=== PATIENT | female | born 1960 | race Caucasian/White ===

== ENCOUNTER 2019-10-07 22:53 | Emergency (ER) | payer OTHER ==
[~2019-10-07] VITALS: Ht 167.6 cm; Wt 82.0 kg
[2019-10-08] MEDS ORDERED: MECLIZINE 25MG TABLET PO ONE (01:30)
[2019-10-08 01:47] LABS: CHLORIDE 107 mEq/L (98-107)
[2019-10-08 01:53] LABS: HEMOGLOBIN 13.7 g/dL (12.0-16.0); MEAN CORPUSCULAR HEMOGLOBIN 31.3 pg (28.0-32.0); MEAN CORPUSCULAR VOLUME 89.6 fL (81.0-99.0); PLATELET 251 x1000/uL (130-400); RED BLOOD CELL COUNT 4.36 mill/uL (4.2-5.4); RED CELL DISTRIBUTION WIDTH 12.5 % (11.6-14.6)
[2019-10-08] MEDS ORDERED: IBUPROFEN 600MG TABLET PO ONE (02:30)
[2019-10-08 03:38] LABS: CLARITY URINE CLEAR (CLEAR); COLOR URINE YELLOW (YELLOW); KETONES URINE NEGATIVE (NEGATIVE); LEUKOCYTE ESTERASE URINE NEGATIVE (NEGATIVE); NITRITE URINE NEGATIVE (NEGATIVE); OCCULT BLOOD URINE NEGATIVE (NEGATIVE); PROTEIN URINE NEGATIVE (NEGATIVE); SPECIFIC GRAVITY URINE 1.007 (1.005-1.030); UROBILINOGEN URINE 0.2 E.U./dL (0.2-1.0)
[2019-10-08 03:43] VITALS: BP 135/76
== END 2019-10-08 04:24 | disposition home or self-care (01) ==
LOC: ER 22:53
DX: R42 Dizziness and giddiness (principal); H92.09 Otalgia, unspecified ear; Z98.890 Other specified postprocedural states; Z91.02 Food additives allergy status
CPT/HCPCS: 36415; 70450; 80053; 81003; 83690; 85027; 93005; 99285; J8597

== ENCOUNTER 2021-02-23 20:56 | Inpatient (IN) | payer OTHER ==
[~2021-02-23] VITALS: Ht 170.2 cm; Wt 89.9 kg
[~2021-02-23 20:56] MED LIST: ACET-2708 MT; IBUP-2030 PO; TUSSL MT
[2021-02-23 21:00] VITALS: BP 108/51
[2021-02-23] MEDS ORDERED: ONDANSETRON HCL 4MG TABLET PO PRN (22:30)
[2021-02-23] MEDS ORDERED: ALBUTEROL 6.7GM HFA INHALER ORI PRN (22:30)
[2021-02-23] MEDS ORDERED: NALOXONE HCL 0.4 MG/ML 1ML VIAL IV PRN (22:30)
[2021-02-23] MEDS ORDERED: MECLIZINE 25MG TABLET PO PRN (22:30)
[2021-02-23] MEDS: HYDROCODONE/ACETAMINOPHEN 5/325MG TABLET PO PRN (22:45)
[2021-02-23] MEDS ORDERED: NALOXONE HCL 0.4MG/ML VIAL IV PRN (23:00)
[2021-02-23 23:11] VITALS: BP 108/51
[2021-02-24] MEDS: HYDROCODONE/ACETAMINOPHEN 5/325MG TABLET PO PRN ×3 (06:34→20:45)
[2021-02-24 06:52] LABS: BASOPHILS % 0.5 % (0.0-2.0); EOSINOPHILS % 2.7 % (0.0-5.0); HEMATOCRIT. 35.4 % (36.0-48.0); HEMOGLOBIN. 12.2 g/dL (12.0-16.0); LYMPHOCYTES % 14.9 % (20.0-50.0); MEAN CORPUSCULAR HEMOGLOBIN 29.8 pg (28.0-32.0); MEAN CORPUSCULAR VOLUME 86.5 fL (81.0-99.0); MEAN PLATELET VOLUME 8.3 fl (7.4-10.4); MONOCYTES % 6.5 % (2.0-8.0); NEUTROPHILS % 75.4 % (40.0-76.0); PLATELET 339 x1000/uL (130-400); RED BLOOD CELL COUNT 4.09 mill/uL (4.2-5.4); RED CELL DISTRIBUTION WIDTH 12.4 % (11.6-14.6)
[2021-02-24 06:59] LABS: CHLORIDE 104 mEq/L (98-107)
[2021-02-24] MEDS: GUAIFENESIN-DM 200MG-20MG/10ML UDC PO PRN ×2 (07:32→15:35)
[2021-02-24 07:49] VITALS: BP 103/65
[2021-02-24] MEDS ORDERED: ENOXAPARIN 30MG/0.3ML SYR SUBCUT SCH (09:00)
[2021-02-24] MEDS: ASCORBIC ACID 500 MG TABLET PO SCH ×2 (09:32→20:39)
[2021-02-24] MEDS: ASPIRIN 81MG TABLET PO SCH (09:33)
[2021-02-24] MEDS: ZINC SULFATE 220 MG ( 50 ) CAPSULE PO SCH (09:33)
[2021-02-24] MEDS: CHOLECALCIFEROL (D3) 1000 UNIT TABLET PO SCH (09:33)
[2021-02-24] MEDS: DEXAMETHASONE 4MG/ML 1ML VIAL IV SCH (09:34)
[2021-02-24] MEDS: FAMOTIDINE 20MG TABLET PO SCH ×2 (09:34→20:39)
[2021-02-24] MEDS ORDERED: IPRATROPIUM/ALBUTEROL 0.5-3(2.5)MG/3ML NEB HHN PRN (12:30)
[2021-02-24 15:23] LABS: CLARITY URINE CLEAR (CLEAR); COLOR URINE YELLOW (YELLOW); KETONES URINE NEGATIVE (NEGATIVE); LEUKOCYTE ESTERASE URINE NEGATIVE (NEGATIVE); NITRITE URINE NEGATIVE (NEGATIVE); OCCULT BLOOD URINE NEGATIVE (NEGATIVE); PROTEIN URINE NEGATIVE (NEGATIVE); SPECIFIC GRAVITY URINE 1.012 (1.005-1.030); UROBILINOGEN URINE 0.2 E.U./dL (0.2-1.0)
[2021-02-24] MEDS: BENZONATATE 100MG CAPSULE PO PRN (15:35)
[2021-02-24 20:00] VITALS: BP 117/72
[2021-02-24] MEDS: ENOXAPARIN 100MG/ML SYR SUBCUT SCH ×3 (20:39→20:49)
[2021-02-24] MEDS: ACETAMINOPHEN 325MG TABLET PO PRN (23:52)
[2021-02-25] MEDS: HYDROCODONE/ACETAMINOPHEN 5/325MG TABLET PO PRN ×2 (06:53→20:38)
[2021-02-25 08:00] VITALS: BP 112/62
[2021-02-25] MEDS: ASCORBIC ACID 500 MG TABLET PO SCH ×2 (08:54→20:37)
[2021-02-25] MEDS: CHOLECALCIFEROL (D3) 1000 UNIT TABLET PO SCH (08:54)
[2021-02-25] MEDS: ZINC SULFATE 220 MG ( 50 ) CAPSULE PO SCH (08:55)
[2021-02-25] MEDS: ASPIRIN 81MG TABLET PO SCH (08:55)
[2021-02-25] MEDS: FAMOTIDINE 20MG TABLET PO SCH ×2 (08:55→20:38)
[2021-02-25] MEDS: DEXAMETHASONE 4MG/ML 1ML VIAL IV SCH (08:56)
[2021-02-25] MEDS: ENOXAPARIN 100MG/ML SYR SUBCUT SCH (08:57)
[2021-02-25 09:23] LABS: BASOPHILS % 0.2 % (0.0-2.0); EOSINOPHILS % 0.6 % (0.0-5.0); HEMATOCRIT. 34.2 % (36.0-48.0); MEAN CORPUSCULAR HEMOGLOBIN 30.3 pg (28.0-32.0); MEAN PLATELET VOLUME 8.1 fl (7.4-10.4); MONOCYTES % 5.1 % (2.0-8.0); NEUTROPHILS % 83.1 % (40.0-76.0); PLATELET 434 x1000/uL (130-400); RED BLOOD CELL COUNT 3.97 mill/uL (4.2-5.4); RED CELL DISTRIBUTION WIDTH 12.7 % (11.6-14.6)
[2021-02-25 09:33] LABS: INR 1.1; PROTHROMBIN TIME 11.3 sec (9.6-11.0)
[2021-02-25 10:01] LABS: CHLORIDE 104 mEq/L (98-107)
[2021-02-25 10:09] LABS: LDL CHOLESTEROL 87 mg/dL (5-100)
[2021-02-25 10:10] LABS: HDL CHOLESTEROL 32 mg/dL (40-59); TOTAL IRON BINDING CAPACITY 245 ug/dL (250-450)
[2021-02-25 10:20] LABS: FOLIC ACID (FOLATE) SERUM 17.1 ng/mL (>5.38)
[2021-02-25 11:13] LABS: HEPATITIS B SURFACE ANTIGEN NEGATIVE
[2021-02-25 11:43] LABS: HEPATITIS A AB IGM NEGATIVE (NEGATIVE)
[2021-02-25] MEDS ORDERED: DEXAMETHASONE 10 MG/ML VIAL IV SCH (14:34)
[2021-02-25] MEDS ORDERED: ASCO-339 PO (17:43)
[2021-02-25] MEDS ORDERED: IBUP-2029 PO (17:43)
[2021-02-25] MEDS ORDERED: MULT-1146 PO (17:43)
[2021-02-25] MEDS: APIXABAN 5 MG TABLET PO SCH (18:52)
[2021-02-25 20:00] VITALS: BP 107/62
[2021-02-26] MEDS: GUAIFENESIN-DM 200MG-20MG/10ML UDC PO PRN ×3 (07:04→23:38)
[2021-02-26] MEDS: HYDROCODONE/ACETAMINOPHEN 5/325MG TABLET PO PRN ×3 (07:05→23:38)
[2021-02-26 07:51] VITALS: BP 110/71
[2021-02-26] MEDS: FAMOTIDINE 20MG TABLET PO SCH ×2 (09:21→22:13)
[2021-02-26] MEDS: ZINC SULFATE 220 MG ( 50 ) CAPSULE PO SCH (09:22)
[2021-02-26] MEDS: APIXABAN 5 MG TABLET PO SCH ×2 (09:22→17:25)
[2021-02-26] MEDS: DEXAMETHASONE 10 MG/ML VIAL IV SCH (09:23)
[2021-02-26] MEDS: CHOLECALCIFEROL (D3) 1000 UNIT TABLET PO SCH (09:23)
[2021-02-26] MEDS: ASPIRIN 81MG TABLET PO SCH (09:23)
[2021-02-26] MEDS: ASCORBIC ACID 500 MG TABLET PO SCH ×2 (13:17→22:13)
[2021-02-26] MEDS: BENZONATATE 100MG CAPSULE PO PRN (18:09)
[2021-02-26 20:00] VITALS: BP 117/71
[2021-02-27 07:26] LABS: CHLORIDE 105 mEq/L (98-107)
[2021-02-27 07:42] LABS: BASOPHILS % 0.3 % (0.0-2.0); EOSINOPHILS % 0.6 % (0.0-5.0); HEMATOCRIT. 33.1 % (36.0-48.0); HEMOGLOBIN. 11.2 g/dL (12.0-16.0); LYMPHOCYTES % 15.1 % (20.0-50.0); MEAN CORPUSCULAR HEMOGLOBIN 29.5 pg (28.0-32.0); MEAN CORPUSCULAR VOLUME 87.2 fL (81.0-99.0); MEAN PLATELET VOLUME 7.7 fl (7.4-10.4); MONOCYTES % 6.5 % (2.0-8.0); NEUTROPHILS % 77.5 % (40.0-76.0); PLATELET 464 x1000/uL (130-400); RED CELL DISTRIBUTION WIDTH 12.3 % (11.6-14.6)
[2021-02-27 08:19] VITALS: BP 128/70
[2021-02-27] MEDS: ZINC SULFATE 220 MG ( 50 ) CAPSULE PO SCH (08:46)
[2021-02-27] MEDS: FAMOTIDINE 20MG TABLET PO SCH ×2 (08:46→22:03)
[2021-02-27] MEDS: DEXAMETHASONE 10 MG/ML VIAL IV SCH (08:47)
[2021-02-27] MEDS: ASCORBIC ACID 500 MG TABLET PO SCH ×2 (08:47→22:03)
[2021-02-27] MEDS: CHOLECALCIFEROL (D3) 1000 UNIT TABLET PO SCH (08:47)
[2021-02-27] MEDS: ASPIRIN 81MG TABLET PO SCH (08:48)
[2021-02-27] MEDS: HYDROCODONE/ACETAMINOPHEN 5/325MG TABLET PO PRN (08:58)
[2021-02-27] MEDS: BENZONATATE 100MG CAPSULE PO PRN ×2 (11:41→20:18)
[2021-02-27] MEDS: APIXABAN 5 MG TABLET PO SCH ×2 (12:01→17:12)
[2021-02-27] MEDS: GUAIFENESIN-DM 200MG-20MG/10ML UDC PO PRN ×2 (16:27→23:05)
[2021-02-27 20:00] VITALS: BP 111/69
[2021-02-28 08:30] VITALS: BP 105/59
[2021-02-28] MEDS: GUAIFENESIN-DM 200MG-20MG/10ML UDC PO PRN ×4 (09:02→23:27)
[2021-02-28] MEDS: BENZONATATE 100MG CAPSULE PO PRN ×2 (09:02→17:57)
[2021-02-28] MEDS: APIXABAN 5 MG TABLET PO SCH ×2 (09:02→17:57)
[2021-02-28] MEDS: ASPIRIN 81MG TABLET PO SCH (09:03)
[2021-02-28] MEDS: FAMOTIDINE 20MG TABLET PO SCH ×2 (09:03→21:16)
[2021-02-28] MEDS: CHOLECALCIFEROL (D3) 1000 UNIT TABLET PO SCH (09:03)
[2021-02-28] MEDS: ZINC SULFATE 220 MG ( 50 ) CAPSULE PO SCH (09:03)
[2021-02-28 14:07] LABS: 25-HYDROXY VITAMIN D3 36 ng/mL (.)
[2021-02-28 20:00] VITALS: BP 105/65
[2021-02-28] MEDS: ACETAMINOPHEN 325MG TABLET PO PRN (21:16)
[2021-03-01] MEDS: BENZONATATE 100MG CAPSULE PO PRN ×2 (06:56→16:42)
[2021-03-01 08:00] VITALS: BP 110/70
[2021-03-01] MEDS: ZINC SULFATE 220 MG ( 50 ) CAPSULE PO SCH (08:42)
[2021-03-01] MEDS: CHOLECALCIFEROL (D3) 1000 UNIT TABLET PO SCH (08:42)
[2021-03-01] MEDS: FAMOTIDINE 20MG TABLET PO SCH ×2 (08:42→20:56)
[2021-03-01] MEDS: GUAIFENESIN-DM 200MG-20MG/10ML UDC PO PRN ×3 (08:43→20:56)
[2021-03-01] MEDS: ASPIRIN 81MG TABLET PO SCH (08:43)
[2021-03-01] MEDS: APIXABAN 5 MG TABLET PO SCH ×2 (08:43→16:31)
[2021-03-01] MEDS ORDERED: ERGOCALCIFEROL 50000UNITS CAPSULE PO SCH (15:15)
[2021-03-01 16:28] LABS: BASOPHILS % 0.5 % (0.0-2.0); EOSINOPHILS % 0.8 % (0.0-5.0); HEMATOCRIT. 34.6 % (36.0-48.0); LYMPHOCYTES % 14.7 % (20.0-50.0); MEAN CORPUSCULAR HEMOGLOBIN 30.3 pg (28.0-32.0); MEAN PLATELET VOLUME 7.5 fl (7.4-10.4); MONOCYTES % 7.1 % (2.0-8.0); NEUTROPHILS % 76.9 % (40.0-76.0); PLATELET 473 x1000/uL (130-400); RED BLOOD CELL COUNT 3.97 mill/uL (4.2-5.4); RED CELL DISTRIBUTION WIDTH 12.4 % (11.6-14.6)
[2021-03-01 16:41] LABS: CHLORIDE 106 mEq/L (98-107)
[2021-03-01 20:00] VITALS: BP 110/68
[2021-03-01] MEDS: ACETAMINOPHEN 325MG TABLET PO PRN (20:56)
[2021-03-02 07:46] VITALS: BP 106/70
[2021-03-02] MEDS: ZINC SULFATE 220 MG ( 50 ) CAPSULE PO SCH (08:14)
[2021-03-02] MEDS: CHOLECALCIFEROL (D3) 1000 UNIT TABLET PO SCH (08:15)
[2021-03-02] MEDS: FAMOTIDINE 20MG TABLET PO SCH (08:15)
[2021-03-02] MEDS: ASPIRIN 81MG TABLET PO SCH (08:15)
[2021-03-02] MEDS: APIXABAN 5 MG TABLET PO SCH (08:15)
[2021-03-02] MEDS: GUAIFENESIN-DM 200MG-20MG/10ML UDC PO PRN ×2 (08:15→13:44)
[2021-03-02] MEDS ORDERED: APIX5TAB PO (09:23)
[2021-03-02] MEDS ORDERED: ALBU18HF2 IH (09:39)
[2021-03-02] MEDS ORDERED: HEXY1LOZ4 MM (09:39)
[2021-03-02] MEDS ORDERED: FLUT1DIS3 INH (09:39)
[2021-03-02 11:43] VITALS: BP 106/70
[2021-03-04] MEDS ORDERED: APIXABAN 5 MG TABLET PO SCH (17:00)
== END 2021-03-02 14:50 | disposition home health service (06) | DRG 861 ==
PROVIDERS: ADMIT Physical Medicine & Rehabilitation Spinal Cord Injury Medicine; ATTEND Internal Medicine
DX: R53.81 Other malaise (principal); J96.21 Acute and chronic respiratory failure with hypoxia; E43 Unspecified severe protein-calorie malnutrition; A41.9 Sepsis, unspecified organism; J18.9 Pneumonia, unspecified organism; E87.1 Hypo-osmolality and hyponatremia; N39.3 Stress incontinence (female) (male); E55.9 Vitamin D deficiency, unspecified; I82.432 Acute embolism and thrombosis of left popliteal vein; R26.9 Unspecified abnormalities of gait and mobility; R73.9 Hyperglycemia, unspecified; R74.01 Elevation of levels of liver transaminase levels; G90.8 Other disorders of autonomic nervous system; E66.01 Morbid (severe) obesity due to excess calories; Z82.49 Family history of ischemic heart disease and other diseases of the circulatory system; Z86.16 Personal history of COVID-19; Z88.8 Allergy status to other drugs, medicaments and biological substances; Z88.2 Allergy status to sulfonamides; Z68.31 Body mass index [BMI] 31.0-31.9, adult
CPT/HCPCS: 36415; 80053; 80061; 81003; 82306; 82607; 82728; 82746; 83036; 83540; 83550; 83735; 84100; 84134; 84145; 84443; 85025; 86705; 86709; 86803; 87340; 92610; 93970; 97110; 97112; 97116; 97162; 97166; 97530; 97535; J1100; J1650